=== PATIENT | female | born 1945 | race Caucasian/White ===

== ENCOUNTER 2017-09-17 06:42 | Emergency (ER) | payer OTHER ==
[~2017-09-17] VITALS: Ht 157.5 cm; Wt 49.9 kg
[~2017-09-17 06:42] MED LIST: ALBU2TAB4 PO; ALEN70SO OR; AMLO5TAB2 PO; ATEN-60 PO; ATOR40TA52 PO; BACL10TA PO; CLON05T PO; FLUO-125 PO; FLUT0.05 NAS; GLIP-115 PO; HYDR-4683 PO; IBU600T PO; LOSA50TA6 PO; METF-370 PO; MIRT30TA OR; MOME200A INH; OME20T PO; TROS60CA4 OR
[2017-09-17 07:46] VITALS: BP 141/82
[2017-09-17] MEDS ORDERED: KETOROLAC TROMETH 30 MG/ML 1ML VIAL IV ONE (08:30)
== END 2017-09-17 10:04 | disposition home or self-care (01) ==
LOC: EDBD 06:42 → ER 06:49
DX: S20.212A Contusion of left front wall of thorax, initial encounter (principal); S09.90XA Unspecified injury of head, initial encounter; E11.9 Type 2 diabetes mellitus without complications; E78.5 Hyperlipidemia, unspecified; I10 Essential (primary) hypertension; J45.909 Unspecified asthma, uncomplicated; Z88.1 Allergy status to other antibiotic agents; Z88.2 Allergy status to sulfonamides; Z88.0 Allergy status to penicillin; Z79.899 Other long term (current) drug therapy; W01.0XXA Fall on same level from slipping, tripping and stumbling without subsequent striking against object, initial encounter; Y93.89 Activity, other specified; Y99.8 Other external cause status; Y92.89 Other specified places as the place of occurrence of the external cause
CPT/HCPCS: 70450; 71101; 96374; 99284; J1885; 93005

== ENCOUNTER 2020-11-29 12:03 | Emergency (ER) | payer OTHER ==
[~2020-11-29] VITALS: Ht 147.3 cm; Wt 48.1 kg
[~2020-11-29 12:03] MED LIST changes: +AMLO-489 PO; -AMLO5TAB2 PO; +CLON0.5T3 PO; -CLON05T PO; -GLIP-115 PO; +GLIP5TAB12 PO; -HYDR-4683 PO; +HYDR-4833 PO; -IBU600T PO; +IBUP600T28 PO; +LOSA-69 PO; -LOSA50TA6 PO; +MIRT-66 OR; -MIRT30TA OR
[2020-11-29 12:54] VITALS: BP 175/93
[2020-11-29] MEDS ORDERED: NEOMYCIN-BACITRACIN-POLYM UNITDOSE PKG TOP OINT TOP ONE (13:45)
[2020-11-29] MEDS ORDERED: ACETAMINOPHEN 325 MG TAB PO ONE (13:45)
== END 2020-11-29 14:22 | disposition home or self-care (01) ==
LOC: ER 12:03
DX: S16.1XXA Strain of muscle, fascia and tendon at neck level, initial encounter (principal); S50.12XA Contusion of left forearm, initial encounter; S00.03XA Contusion of scalp, initial encounter; M50.30 Other cervical disc degeneration, unspecified cervical region; J45.909 Unspecified asthma, uncomplicated; E11.9 Type 2 diabetes mellitus without complications; I10 Essential (primary) hypertension; E78.5 Hyperlipidemia, unspecified; Z90.49 Acquired absence of other specified parts of digestive tract; Z90.89 Acquired absence of other organs; Z79.84 Long term (current) use of oral hypoglycemic drugs; Z79.899 Other long term (current) drug therapy; Z88.0 Allergy status to penicillin; Z88.1 Allergy status to other antibiotic agents; Z88.2 Allergy status to sulfonamides; W01.0XXA Fall on same level from slipping, tripping and stumbling without subsequent striking against object, initial encounter; Y93.89 Activity, other specified; Y92.89 Other specified places as the place of occurrence of the external cause; Y99.8 Other external cause status
CPT/HCPCS: 70450; 72125; 73090